=== PATIENT | female | born 1975 | race African-American/Black ===

== ENCOUNTER 2020-12-17 10:24 | Emergency (ER) | payer OTHER ==
[2020-12-17 11:04] VITALS: BP 127/87
--- NOTE | 2020-12-17 11:24 | Emergency Department Report ---
Abscess Boil HPI - HPI Chief Complaint: Skin/Abscess/Foreign Body Stated Complaint: BUTTOCK ABCESS Time Seen by Provider: 12/17/20 11:14 Duration: >1 Week Location: Sacral/Pilonidal History: Yes Pain, Yes Previous History, No Fever, No Purulent Drainage, No Numbness, No Foreign Body, No Insect Bite HPI: 45-year-old male presents to the emergency room for what he thinks is an abscess to his right buttocks that started last week. Patient states that the pain is worse when he sits. States that his head low-grade fever. He reports that he has been taking Tylenol. He states he has been using aloe vera plant to his bottom. Home Medications: Previous Rx's Medication Instructions Recorded Last Taken Type Clindamycin [Clindamycin CAP] 300 mg PO Q8H 10 Days #30 cap 12/17/20 Unknown Rx Ibuprofen [Motrin 600 MG tab] 600 mg PO Q8H PRN #30 tablet 12/17/20 Unknown Rx Allergies/Adverse Reactions: Allergies Allergy/AdvReac Type Severity Reaction Status Date / Time No Known Allergies Allergy Unverified 12/17/20 11:00 ED Review of Systems ROS: Stated complaint: BUTTOCK ABCESS Other details as noted in HPI Comment: All other systems reviewed and negative ED Past Medical Hx - Past Medical History Previous Medical History?: No - Surgical History Past Surgical History?: No - Medications Home Medications: Home Medications Medication Instructions Recorded Confirmed Last Taken Type Clindamycin [Clindamycin CAP] 300 mg PO Q8H 10 Days #30 cap 12/17/20 Unknown Rx Ibuprofen [Motrin 600 MG tab] 600 mg PO Q8H PRN #30 tablet 12/17/20 Unknown Rx ED Abscess Boil Physical Exam - Exam General: Vital signs noted. No distress. Alert and acting appropriately. Size: 5 cm Exam: Yes Tenderness, Yes Surrounding Cellulites/Erythema, Yes Normal Neurologic Exam, Yes Normal Circulation, No Fluctuance, No Heart Murmur ED Course Vital Signs 12/17/20 11:03 Temperature 98.5 F Pulse Rate 75 Respiratory 18 Rate Blood Pressure 127/87 O2 Sat by Pulse 100 Oximetry Critical care attestation.: If time is entered above; I have spent that time in minutes in the direct care of this critically ill patient, excluding procedure time. ED Medical Decision Making - Medical Decision Making 45-year-old male presents to the emergency room for what he thinks is an abscess to his right buttocks that started last week. Patient states that the pain is worse when he sits. States that his head low-grade fever. He reports that he has been taking Tylenol. He states he has been using aloe vera plant to his bottom. Patient has a cellulitis of his right cheek there is no abscess that is forming at this time. I instructed patient to complete antibiotics take pain medication and apply warm compress and to follow-up with your primary care provider. ED Disposition Clinical Impression: Cellulitis and abscess of buttock Disposition: [id number] TO HOME OR SELFCARE Is pt being admited?: No Does the pt Need Aspirin: No Condition: Stable Instructions: Cellulitis, Adult, [id number] Additional Instructions: Complete antibiotics as prescribed. Ibuprofen or Tylenol as needed for pain. Apply warm compress to the buttocks. Follow-up with a primary care provider. Prescriptions: Clindamycin [Clindamycin CAP] 300 mg PO Q8H 10 Days #30 cap Ibuprofen [Motrin 600 MG tab] 600 mg PO Q8H PRN #30 tablet PRN Reason: Pain Referrals: ANNIE PIERRE MD [Staff Physician] - 3-5 Days CHARLEE JAUREGUI MD [Staff Physician] - 3-5 Days Forms: Work/School Release Form(ED)
== END 2020-12-17 12:07 | disposition home or self-care (01) ==
LOC: ED 10:24
DX: L03.317 Cellulitis of buttock (principal); Z79.899 Other long term (current) drug therapy
CPT/HCPCS: 99281